=== PATIENT | male | born 1950 | race Hispanic/Latino ===

== ENCOUNTER 2018-11-21 08:56 | Outpatient (CLI) | payer BC, MEDICARE ==
--- NOTE | 2018-11-21 14:27 | RAD ---
Modified barium swallow HISTORY: Dysphagia. Feeding difficulties. FINDINGS: Exam was performed by speech pathology with multiple consistencies. Video review is availab le and demonstrates good bolus formation and retropulsion. Early spill of contrast to the piriform sinuses with barium coated solids. No evidence of penetration or aspiration. Slight indentation upon the posterior aspect of the upper esophagus at the level of the upper esophageal sphincter. Barium tablet was swallowed without difficulty. No evidence of aspiration. Fluoroscopy time 13 seconds. The esophagus below the level of the hypopharynx was not evaluated. Please see separate detailed repo rt from speech pathology.
== END 2018-11-21 08:57 | disposition home or self-care (01) ==
PROVIDERS: ATTEND Family Medicine
DX: R13.12 Dysphagia, oropharyngeal phase (principal); R63.3 Feeding difficulties
CPT/HCPCS: 74230

== ENCOUNTER 2018-11-23 10:55 | Outpatient (CLI) | payer BC, MEDICARE ==
--- NOTE | 2018-11-23 11:53 | CT ---
CT BRAIN PERFORMED WITHOUT CONTRAST ENHANCEMENT: Date: 11/23/18 HISTORY: Head injury. FINDINGS: The ventricular and cisternal system shows fairly age-appropriate change. There are no signs of intra cerebral hemorrhage or extra-axial fluid collections. The mastoid air cells and visualized sinuses ar e clear. IMPRESSION: No acute intracranial abnormalities. POS: [facility]
== END 2018-11-23 10:56 | disposition home or self-care (01) ==
LOC: SCSCT 10:55
PROVIDERS: ATTEND Family Medicine
DX: S06.0X1D Concussion with loss of consciousness of 30 minutes or less, subsequent encounter (principal)
CPT/HCPCS: 70450

== ENCOUNTER 2020-12-09 14:05 | Outpatient (CLI) | payer MEDICARE ==
[2020-12-10 08:17] LABS: SARS-CoV-2 PCR by NAA Not Detected (NotDetected)
== END 2020-12-09 14:06 | disposition home or self-care (01) ==
LOC: LABBT 14:05
PROVIDERS: ATTEND Specialist
DX: Z01.812 Encounter for preprocedural laboratory examination (principal); R13.10 Dysphagia, unspecified; Z20.822 Contact with and (suspected) exposure to COVID-19
CPT/HCPCS: U0003; U0005

== ENCOUNTER 2020-12-13 10:00 | Outpatient (CLI) | payer MEDICARE | END 2020-12-13 10:01 | disposition home or self-care (01) | LOC: RAD 10:00 | PROVIDERS: ATTEND Specialist | DX: R13.10 Dysphagia, unspecified (principal); K44.9 Diaphragmatic hernia without obstruction or gangrene; K22.89 Other specified disease of esophagus | CPT/HCPCS: 74220 ==

== ENCOUNTER 2021-07-31 17:30 | Outpatient (CLI) | payer MEDICARE | END 2021-07-31 17:31 | disposition home or self-care (01) | LOC: SLEEPLAB 17:30 | PROVIDERS: ATTEND Specialist | DX: G47.33 Obstructive sleep apnea (adult) (pediatric) (principal); R53.83 Other fatigue; R51.9 Headache, unspecified; E66.9 Obesity, unspecified; K21.9 Gastro-esophageal reflux disease without esophagitis; R06.83 Snoring; I10 Essential (primary) hypertension; I25.10 Atherosclerotic heart disease of native coronary artery without angina pectoris; Z68.33 Body mass index [BMI] 33.0-33.9, adult | CPT/HCPCS: 95800 ==

== ENCOUNTER 2021-12-11 14:06 | Observation (INO) | payer MEDICARE, OTHER ==
[2021-12-11 14:51] LABS: #Eosinphils 0.1 thou/uL (0.0-0.7); #Lymphocytes 2.1 thou/uL (1.20-3.40); #Monocytes 0.5 thou/uL (0.11-0.59); #Neutrophils 3.5 thou/uL (1.40-6.50); %Basophils 0.1 % (0.0-1.0); %Eosinophils 1.4 % (0.0-10.0); %Lymphocytes 33.5 % (21.0-51.0); %Monocytes 8.4 % (0.0-10.0); %Neutrophils 56.5 % (42.0-75.0); Hemoglobin 13.9 g/dL (14.0-18.0); Mean Corpuscular HGB CONC 33.1 g/dL (32.0-36.0); Mean Corpuscular Hemoglobin 30.5 pg (27.0-31.0); Mean Corpuscular Volume 92.2 fl (78.0-98.0); Mean Platelet Volume 6.6 fL (7.4-10.4); Platelet Count 208 thou/uL (130-400); RBC Distribution Width 12.5 % (11.5-14.5); Red Blood Cell (RBC) Count 4.57 mill/uL (4.70-6.10); White Blood Cell (WBC) Count 6.2 thou/uL (4.8-10.8)
[2021-12-11 16:39] LABS: ALT (SGPT) 27 U/L (8-55); AST (SGOT) 30 U/L (5-34); Albumin 4.4 g/dL (3.4-4.8); Alkaline Phosphatase 86 U/L (40-110); Anion Gap 13 mmol/L (10-20); BUN (Urea Nitrogen) 23 mg/dL (8.4-25.7); Bilirubin, Total 0.9 mg/dL (0.2-1.2); Calc. Creatinine Clearance 0 mL/min (70-130); Calcium 9.2 mg/dL (7.8-10.44); Carbon Dioxide 23 mmol/L (23-31); Chloride 104 mmol/L (98-107); Estimated GFR 72; Globulin 3.6 g/dL (2.4-3.5); Glucose 121 mg/dL (80-115); Sodium 136 mmol/L (136-145)
[2021-12-11 17:14] LABS: ALT (SGPT) 25 U/L (8-55); AST (SGOT) 22 U/L (5-34); Albumin 4.2 g/dL (3.4-4.8); Alkaline Phosphatase 80 U/L (40-110); Anion Gap 12 mmol/L (10-20); BUN (Urea Nitrogen) 23 mg/dL (8.4-25.7); Bilirubin, Total 0.7 mg/dL (0.2-1.2); Calc. Creatinine Clearance 0 mL/min (70-130); Carbon Dioxide 24 mmol/L (23-31); Chloride 105 mmol/L (98-107); Estimated GFR 73; Globulin 3.1 g/dL (2.4-3.5); Glucose 119 mg/dL (80-115); Potassium 3.8 mmol/L (3.5-5.1); Protein, Total 7.3 g/dL (5.8-8.1); Sodium 137 mmol/L (136-145)
[2021-12-11 18:46] LABS: Troponin I Less than 0.010 ng/mL (< 0.028)
[2021-12-11] MEDS ORDERED: Ondansetron PF 4 MG/2 ML Vial IVP PRN (18:53)
[2021-12-11] MEDS ORDERED: Ondansetron ODT 4 MG TAB PO PRN (18:53)
[2021-12-11 19:51] VITALS: BMI 31.6
[2021-12-11 20:39] LABS: Troponin I Less than 0.010 ng/mL (< 0.028)
[2021-12-12] MEDS: Acetaminophen 325 MG TAB PO PRN ×2 (03:36→09:25)
[2021-12-12] MEDS ORDERED: Rosuvastatin 20 MG TAB PO SCH (09:00)
[2021-12-12] MEDS ORDERED: Losartan 25 MG TAB PO SCH (09:00)
[2021-12-12] MEDS ORDERED: Hydrochlorothiazide 25 MG TAB PO SCH (09:00)
[2021-12-12] MEDS ORDERED: Amlodipine 5 MG TAB PO SCH (09:00)
[2021-12-12] MEDS ORDERED: Aspirin 81 mg Enteric Coated Tablet PO SCH (09:00)
[2021-12-12 15:20] VITALS: BP 118/60; TEMP 98.2
== END 2021-12-12 18:16 | disposition home or self-care (01) ==
LOC: ERS 14:06 → 2SW 17:48
PROVIDERS: ADMIT Family Medicine; ATTEND Family Medicine
DX: R55 Syncope and collapse (principal); K22.4 Dyskinesia of esophagus; K44.9 Diaphragmatic hernia without obstruction or gangrene; I08.3 Combined rheumatic disorders of mitral, aortic and tricuspid valves; I10 Essential (primary) hypertension; E78.00 Pure hypercholesterolemia, unspecified; I25.10 Atherosclerotic heart disease of native coronary artery without angina pectoris; G47.33 Obstructive sleep apnea (adult) (pediatric); I65.23 Occlusion and stenosis of bilateral carotid arteries; Z79.82 Long term (current) use of aspirin; Z79.899 Other long term (current) drug therapy; Z95.1 Presence of aortocoronary bypass graft; Z20.822 Contact with and (suspected) exposure to COVID-19
CPT/HCPCS: 74220; 80053 ×2; 83880; 84484 ×2; 85025; 93005; 93306; 93880; 94760; 99285; G0378 ×3; U0003; U0005; 36415

== ENCOUNTER 2022-01-19 05:45 | Day surgery (SDC) | payer OTHER ==
[2022-01-16 12:52] VITALS: BMI 29.6
[2022-01-19] MEDS ORDERED: CEFAZOLIN 1 GM VIAL ONE (06:34)
[2022-01-19] MEDS ORDERED: Lidocaine 1% (PF) 30 ML VIAL ONE ×2 (06:34→07:36)
[2022-01-19] MEDS ORDERED: Gentamicin 80 MG/2 ML VIAL ONE (06:34)
[2022-01-19] MEDS ORDERED: FENTANYL 50 MCG/ML 1 ML VIAL ONE (06:50)
[2022-01-19] MEDS ORDERED: Midazolam HCl 2 mg/2 ml Vial ONE (06:50)
[2022-01-19] MEDS ORDERED: Acetaminophen 325 MG TAB ONE (09:47)
[2022-01-19] MEDS ORDERED: Acetaminophen 325 MG TAB PO PRN (10:17)
[2022-01-19] MEDS ORDERED: Acetaminophen/Codeine 30-300mg Tablet PO PRN ×2 (10:17→10:18)
[2022-01-19] MEDS ORDERED: Acetaminophen/Codeine 30-300mg Tablet ONE ×2 (10:58→14:44)
== END 2022-01-19 14:51 | disposition home or self-care (01) ==
LOC: CCL 05:45
PROVIDERS: ATTEND Internal Medicine Cardiovascular Disease
PROC: 0JH606Z Insertion of Pacemaker, Dual Chamber into Chest Subcutaneous Tissue and Fascia, Open Approach (ICD-10-PCS; principal; 2022-01-19)
PROC: 02H63JZ Insertion of Pacemaker Lead into Right Atrium, Percutaneous Approach (ICD-10-PCS; 2022-01-19)
PROC: 02HK3JZ Insertion of Pacemaker Lead into Right Ventricle, Percutaneous Approach (ICD-10-PCS; 2022-01-19)
DX: I49.5 Sick sinus syndrome (principal); R55 Syncope and collapse; I25.10 Atherosclerotic heart disease of native coronary artery without angina pectoris; E78.00 Pure hypercholesterolemia, unspecified; I10 Essential (primary) hypertension; Z79.82 Long term (current) use of aspirin; Z79.899 Other long term (current) drug therapy; Z95.1 Presence of aortocoronary bypass graft
CPT/HCPCS: 33208; 36005; 71045; 93005; 99152; 99153; J0690; J1580; J2001; J2250; J3010

== ENCOUNTER 2023-04-01 06:57 | Outpatient (CLI) | payer OTHER | END 2023-04-01 06:58 | disposition home or self-care (01) | LOC: BICULT 06:57 | PROVIDERS: ATTEND Family Medicine | DX: R10.11 Right upper quadrant pain (principal); N28.1 Cyst of kidney, acquired | CPT/HCPCS: 76700 ==

== ENCOUNTER 2023-04-29 08:24 | Outpatient (CLI) | payer OTHER | END 2023-04-29 08:25 | disposition home or self-care (01) | LOC: CT 08:24 | PROVIDERS: ATTEND Urology | DX: N28.89 Other specified disorders of kidney and ureter (principal); K44.9 Diaphragmatic hernia without obstruction or gangrene; R91.8 Other nonspecific abnormal finding of lung field | CPT/HCPCS: 71260; 78306; 82565; A9503 ==

== ENCOUNTER 2023-06-27 15:43 | Inpatient (IN) | payer OTHER ==
[2023-06-27 16:30] LABS: #Basophils 0.03 10x3/uL (0.0-0.2); %Basophils 0.4 % (0.0-1.0); %Eosinophils 4.8 % (0.0-10.0); %Lymphocytes 19.5 % (21.0-51.0); %Monocytes 7.3 % (0.0-10.0); %Neutrophils 67.8 % (42.0-75.0); Hematocrit 33.8 % (42.0-52.0); Hemoglobin 11.3 g/dL (14.0-18.0); Mean Corpuscular HGB CONC 33.4 g/dL (32.0-36.0); Mean Corpuscular Volume 89.7 fL (78.0-98.0); Mean Platelet Volume 8.3 fL (7.4-10.4); Platelet Count 313 10x3/uL (130-400); RBC Distribution Width 13.2 % (11.5-14.5); Red Blood Cell (RBC) Count 3.77 mill/uL (4.70-6.10)
[2023-06-27] MEDS ORDERED: Morphine 2 MG/ML VIAL ONE (16:46)
[2023-06-27] MEDS ORDERED: Piperacillin/Tazobactam 3.375 GM VIAL ONE (16:46)
[2023-06-27] MEDS ORDERED: Sodium Chloride 0.9% 100 ML ONE (16:46)
[2023-06-27 16:47] LABS: ALT (SGPT) 49 U/L (8-55); AST (SGOT) 31 U/L (5-34); Albumin 3.5 g/dL (3.4-4.8); Alkaline Phosphatase 111 U/L (40-110); Anion Gap 13 mmol/L (10-20); BUN (Urea Nitrogen) 43 mg/dL (8.4-25.7); Bilirubin, Total 0.7 mg/dL (0.2-1.2); Calc. Creatinine Clearance 0 mL/min (70-130); Calcium 9.2 mg/dL (7.8-10.44); Carbon Dioxide 23 mmol/L (23-31); Chloride 105 mmol/L (98-107); Estimated GFR 41; Globulin 3.8 g/dL (2.4-3.5); Glucose 133 mg/dL (83-110); Protein, Total 7.3 g/dL (5.8-8.1); Sodium 137 mmol/L (136-145)
[2023-06-27] MEDS ORDERED: Ketotifen 0.035% Ophth Soln 5 ml Bottle EA EYE PRN (17:42)
[2023-06-27] MEDS ORDERED: Ondansetron PF 4 MG/2 ML Vial IVP PRN (17:47)
[2023-06-27] MEDS ORDERED: Acetaminophen 325 MG TAB PO PRN (17:47)
[2023-06-27 18:49] VITALS: BMI 28.6
[2023-06-27] MEDS: HYDROcodone/Acetaminophen 5/325 mg Tablet PO PRN (19:29)
[2023-06-27] MEDS: Sodium Chloride 0.9% 1,000 ML IV SCH (19:31)
[2023-06-27] MEDS: CEFAZOLIN 1 GM in Sodium Chloride 0.9% 100 ML IVPB SCH (21:22)
[2023-06-27] MEDS: Rosuvastatin 20 MG TAB PO SCH (21:22)
[2023-06-27] MEDS: dilTIAZem 30 MG TAB PO SCH (21:22)
[2023-06-28] MEDS: Morphine 2 MG/ML VIAL SLOW IVP PRN (07:22)
[2023-06-28 08:20] LABS: #Basophils 0.03 10x3/uL (0.0-0.2); %Basophils 0.3 % (0.0-1.0); %Eosinophils 4.2 % (0.0-10.0); %Lymphocytes 22.4 % (21.0-51.0); %Monocytes 6.9 % (0.0-10.0); %Neutrophils 65.7 % (42.0-75.0); Hematocrit 32.6 % (42.0-52.0); Mean Corpuscular HGB CONC 33.7 g/dL (32.0-36.0); Mean Corpuscular Hemoglobin 30.6 pg (27.0-31.0); Mean Corpuscular Volume 90.8 fL (78.0-98.0); Mean Platelet Volume 8.6 fL (7.4-10.4); Platelet Count 303 10x3/uL (130-400); RBC Distribution Width 13.3 % (11.5-14.5); Red Blood Cell (RBC) Count 3.59 mill/uL (4.70-6.10)
[2023-06-28] MEDS: Ezetimibe 10 MG TAB PO SCH (08:22)
[2023-06-28] MEDS: Pantoprazole DR 40 MG TAB PO SCH (08:22)
[2023-06-28] MEDS: Amlodipine 5 MG TAB PO SCH (08:23)
[2023-06-28] MEDS: Nebivolol HCl 5 MG TAB PO SCH (08:23)
[2023-06-28 08:40] LABS: Anion Gap 14 mmol/L (10-20); BUN (Urea Nitrogen) 38 mg/dL (8.4-25.7); Calc. Creatinine Clearance 42 mL/min (70-130); Calcium 8.8 mg/dL (7.8-10.44); Carbon Dioxide 22 mmol/L (23-31); Chloride 106 mmol/L (98-107); Estimated GFR 41; Glucose 89 mg/dL (83-110); Potassium 3.9 mmol/L (3.5-5.1); Sodium 138 mmol/L (136-145)
[2023-06-28 11:04] VITALS: BMI 28.6
[2023-06-28] MEDS: HYDROcodone/Acetaminophen 5/325 mg Tablet PO PRN (14:32)
[2023-06-28 16:22] VITALS: BP 125/69; TEMP 98.1
== END 2023-06-28 17:39 | disposition home or self-care (01) | DRG 920 ==
LOC: ERS 15:43 → T4-A 17:26
PROVIDERS: ADMIT Family Medicine; ATTEND Hospitalist
PROC: 0J980ZZ Drainage of Abdomen Subcutaneous Tissue and Fascia, Open Approach (ICD-10-PCS; principal; 2023-06-27)
DX: L76.34 Postprocedural seroma of skin and subcutaneous tissue following other procedure (principal); N17.9 Acute kidney failure, unspecified; T81.31XA Disruption of external operation (surgical) wound, not elsewhere classified, initial encounter; Y83.8 Other surgical procedures as the cause of abnormal reaction of the patient, or of later complication, without mention of misadventure at the time of the procedure; I25.10 Atherosclerotic heart disease of native coronary artery without angina pectoris; E66.9 Obesity, unspecified; G47.33 Obstructive sleep apnea (adult) (pediatric); E78.5 Hyperlipidemia, unspecified; I10 Essential (primary) hypertension; Z79.899 Other long term (current) drug therapy; Z95.1 Presence of aortocoronary bypass graft; Z90.5 Acquired absence of kidney; Z68.28 Body mass index [BMI] 28.0-28.9, adult; Z85.528 Personal history of other malignant neoplasm of kidney; Z95.0 Presence of cardiac pacemaker
CPT/HCPCS: 36415; 80048; 80053; 83605; 85025; 96365; 96375; 97139; J0690; J2272; J2543; J3490; J7050

== ENCOUNTER 2025-01-29 09:27 | Day surgery (SDC) | payer MEDICARE ==
[2025-01-26 09:49] VITALS: BMI 30.4
[2025-01-29] MEDS ORDERED: LevoFLOXacin D5W 500 mg (100 mL) BAG ONE (12:35)
[2025-01-29] MEDS ORDERED: cefTRIAXone (ROCEPHIN) 2 GM VIAL ONE (12:37)
[2025-01-29] MEDS ORDERED: fentaNYL PF 100 MCG/2 ML SYRINGE ONE (12:49)
[2025-01-29] MEDS ORDERED: PROPOFOL 200 MG/20 ML VIAL ONE (12:54)
[2025-01-29] MEDS ORDERED: Ondansetron PF 4 MG/2 ML Vial ONE (13:06)
[2025-01-29] MEDS ORDERED: Oxybutynin 5 MG TAB ONE (15:11)
== END 2025-01-29 16:38 | disposition home or self-care (01) ==
LOC: SDC 09:27
PROVIDERS: ATTEND Urology
PROC: 0T7D0ZZ Dilation of Urethra, Open Approach (ICD-10-PCS; principal; 2025-01-29)
DX: N35.916 Unspecified urethral stricture, male, overlapping sites (principal); N35.911 Unspecified urethral stricture, male, meatal; N40.1 Benign prostatic hyperplasia with lower urinary tract symptoms; N13.8 Other obstructive and reflux uropathy; N32.89 Other specified disorders of bladder; I10 Essential (primary) hypertension; G47.33 Obstructive sleep apnea (adult) (pediatric); Z86.79 Personal history of other diseases of the circulatory system; Z79.82 Long term (current) use of aspirin; Z79.899 Other long term (current) drug therapy; Z95.0 Presence of cardiac pacemaker
CPT/HCPCS: 52276; 74420; A4340; C1769; J0696; J1100; J2405; J2704; Q9967; J1956